=== PATIENT | male | born 1990 | race American Indian/Alaskan Native ===

== ENCOUNTER 2018-11-23 02:55 | Emergency (ER) | payer BC ==
[2018-11-23 03:36] LABS: Hematocrit 41.4 % (35.5-45.6); Hemoglobin 14.1 gm/dl (11.8-15.2); Mean Corpuscular HGB Conc 34 % (32-34); Mean Corpuscular Volume 87 fl (84-94); Platelet Count 219 K/mm3 (140-440); Red Blood Count 4.78 M/mm3 (3.65-5.03); Red Cell Distribution Width 13.1 % (13.2-15.2)
[2018-11-23 03:56] LABS: BUN/Creatinine Ratio 14; Blood Urea Nitrogen 10 mg/dL (9-20); Calcium 8.8 mg/dL (8.4-10.2); Hemolysis Index 8
[2018-11-23] MEDS ORDERED: HumuLIN R IV ONE (03:59)
[2018-11-23] MEDS ORDERED: NACL 0.9% 1000 ML 1,000 ML IV ONE (03:59)
[2018-11-23] MEDS ORDERED: ZOFRAN IV ONE (04:26)
--- NOTE | 2018-11-23 04:52 | Emergency Department Report ---
HPI - General Chief Complaint: Hyperglycemia Time Seen by Provider: 11/23/18 04:12 - HPI HPI: 28-year-old -[place] male presents to the emergency department with the complaint of hyperglycemia. He is a known insulin-dependent diabetic. He is supposed to be on a combination of NovoLog, Humalog and Lantus but the patient has not been taking his insulin as previously prescribed. He switched insurance from [employer] to [employer] and therefore has been hesitant to get a new primary care physician. He has been trying to stretch the medications out to last. Patient complains of some nausea with vomiting, increased thirst. He says that his fiance told him that he was hallucinating earlier and that has previously been a sign of hyperglycemia. However at the time of my examination the patient is awake, alert and appropriate. No recent travel or sick contacts at home. ED Past Medical Hx - Past Medical History Previous Medical History?: Yes Hx Diabetes: Yes - Surgical History Past Surgical History?: No - Social History Smoking Status: Current Every Day Smoker Substance Use Type: None - Medications Home Medications: Home Medications Medication Instructions Recorded Confirmed Last Taken Type Lispro Insulin [HumaLOG] 15 unit SQ TID #1 vial 11/23/18 Unknown Rx ED Review of Systems ROS: Stated complaint: FEEL ABNORMAL/EXCESSIVE THIRST Other details as noted in HPI Comment: All other systems reviewed and negative Constitutional: denies: chills, fever Eyes: denies: eye pain, vision change ENT: denies: ear pain, throat pain Respiratory: denies: cough, shortness of breath Cardiovascular: denies: chest pain, palpitations Endocrine: increased thirst Gastrointestinal: nausea, vomiting Genitourinary: denies: dysuria, discharge Musculoskeletal: denies: back pain, arthralgia Skin: denies: rash, lesions Neurological: denies: headache, numbness Physical Exam - Physical Exam Vital Signs: Vital Signs 11/23/18 03:01 Temperature 98.1 F Pulse Rate 84 Respiratory 16 Rate Blood Pressure 139/91 O2 Sat by Pulse 100 Oximetry Physical Exam: GENERAL: The patient is well-developed well-nourished. HENT: Normocephalic. Atraumatic. Patient has moist mucous membranes. EYES: Extraocular motions are intact. Pupils equal reactive to light bilaterally. NECK: Supple. Trachea is midline. CHEST/LUNGS: Clear to auscultation. There is no respiratory distress noted. HEART/CARDIOVASCULAR: Regular. There is no tachycardia. There is no murmur. ABDOMEN: Abdomen is soft, nontender. Patient has normal bowel sounds. There is no abdominal distention. SKIN: Skin is warm and dry. NEURO: The patient is awake, alert, and oriented. The patient is cooperative. The patient has no focal neurologic deficits. The patient has normal speech. MUSCULOSKELETAL: There is no tenderness or deformity. There is no limitation range of motion. There is no evidence of acute injury. ED Course Vital Signs 11/23/18 03:01 Temperature 98.1 F Pulse Rate 84 Respiratory 16 Rate Blood Pressure 139/91 O2 Sat by Pulse 100 Oximetry ED Medical Decision Making - Lab Data Result diagrams: 11/23/18 03:11 11/23/18 03:11 - Medical Decision Making This patient presents with the complaint of hyperglycemia as he has not been taking his insulin as prescribed. The patient has some type of a hang up regarding getting a new primary care physician after his insurance changed from [employer] to [employer]. He later clarified that he was on the Humalog/NovoLog that had been stopped from the [facility]. Whatever type of hallucinations or indications of his hyperglycemia that was found at home has since resolved. He did have an episode of nausea and vomiting here however. His serum glucose was found to be about 370. There is no venous acidosis or significant elevation in his anion gap and therefore he does not appear to be in diabetic ketoacidosis. He was given a liter of IV fluid and a dose of IV insulin and his blood sugar came down to about 230. His vital signs are stable throughout his ED course. He is awake, oriented, appropriate. He has been stable throughout his ED course. He will be discharged home with a refill of his Humalog and some referrals for local primary care physicians. He has been instructed to return to the emergency Department with any worsening of his symptoms or any acute distress. - Differential Diagnosis DKA, HHNK, medication noncompliance, viral syndrome Critical Care Time: No Critical care attestation.: If time is entered above; I have spent that time in minutes in the direct care of this critically ill patient, excluding procedure time. ED Disposition Clinical Impression: Hyperglycemia, Hyperglycemia due to type 1 diabetes mellitus, Noncompliance with medication regimen Disposition: -01 TO HOME OR SELFCARE Is pt being admited?: No Condition: Stable Instructions: Diabetic Hyperglycemia (ED) Additional Instructions: Please follow up with a primary care physician in the next few days. Please restart your insulin regimen. Try and stay away from foods that are high in sugar, carbohydrates and starches. Keep a blood sugar log. Return to the emergency Department with any worsening of your symptoms or any acute distress. Prescriptions: Lispro Insulin [HumaLOG] 15 unit SQ TID #1 vial Referrals: MEIR GUADALUPE MD [Staff Physician] - 3-5 Days DENICE VO MD [Staff Physician] - 3-5 Days JOEL DEVINE MD [Staff Physician] - 3-5 Days Time of Disposition: 05:54
[2018-11-23 05:02] LABS: Band Neutrophils # (Manual) 0.1 K/mm3; Basophils % (Manual) 0 % (0.0-1.8); Eosinophils % (Manual) 0 % (0.0-4.3); Total Cells Counted 100
[2018-11-23 05:03] LABS: Anisocytosis 1+
[2018-11-23 06:17] VITALS: BP 135/74
== END 2018-11-23 06:19 | disposition home or self-care (01) ==
LOC: ED 02:55
DX: E10.65 Type 1 diabetes mellitus with hyperglycemia (principal); F17.200 Nicotine dependence, unspecified, uncomplicated; Z91.14 Patient's other noncompliance with medication regimen
CPT/HCPCS: 36415; 80048; 82805; 82962; 85007; 85025; 96361; 96374; 99284; J7030; J1815